=== PATIENT | male | born 1940 | race Caucasian/White ===

== ENCOUNTER 2020-08-20 20:27 | Emergency (ER) | payer MEDICARE ==
[~2020-08-20] VITALS: Ht 172.7 cm; Wt 68.0 kg
[~2020-08-20 20:27] MED LIST: AMLODIPINE BESYL5 MG PO; ASPIRIN EC81 MG PO; COUMADIN5 MG PO; LIPITOR40 MG PO; LISINOPRIL40 MG PO
[2020-08-20] MEDS ORDERED: MIRTAZAPINE15 MG PO (20:54)
== END 2020-08-21 00:15 | disposition home or self-care (01) ==
LOC: ED 20:27
DX: R10.9 Unspecified abdominal pain (principal); I25.2 Old myocardial infarction; Z87.891 Personal history of nicotine dependence; Z88.1 Allergy status to other antibiotic agents; Z79.899 Other long term (current) drug therapy; Z79.01 Long term (current) use of anticoagulants; Z79.82 Long term (current) use of aspirin; Z90.89 Acquired absence of other organs
CPT/HCPCS: 74177; 80053; 81001; 83690; 85025; 85610; 96375; 99284-25; J2405; J3010; J7030; Q9967